=== PATIENT | female | born 1990 | race African-American/Black ===

== ENCOUNTER 2016-09-26 12:57 | Emergency (ER) | payer MEDICAID, OTHER ==
[~2016-09-26] VITALS: Ht 165.1 cm; Wt 86.2 kg
[2016-09-26 14:00] LABS: BASOPHILS % (AUTO) 1.5 % (0.0-2.0); EOSINOPHILS % (AUTO) 1.3 % (0.0-3.0); LYMPHOCYTES % (AUTO) 14.8 % (20.0-45.0); MEAN CORPUSCULAR HGB CONC 33.6 G/DL (32.0-36.0); MEAN CORPUSCULAR VOLUME 86 FL (80-99); MONOCYTES % (AUTO) 7.2 % (1.0-10.0); NEUTROPHILS % (AUTO) 75.2 % (45.0-75.0); PLATELET COUNT 272 K/UL (150-450); RED BLOOD COUNT 4.33 M/UL (4.20-5.40); RED CELL DISTRIBUTION WIDTH 12.4 % (11.6-14.8); WHITE BLOOD COUNT 11.7 K/UL (4.8-10.8)
[2016-09-26 14:07] LABS: KETONES,URINE NEGATIVE (NEGATIVE); LEUKOCYTE ESTERASE ,URINE 1+ (NEGATIVE); NITRITE,URINE NEGATIVE (NEGATIVE); PH,URINE 7 (4.5-8.0); PROTEIN,URINE NEGATIVE (NEGATIVE); UROBILINOGEN,URINE NORMAL MG/DL (0.0-1.0)
[2016-09-26 14:16] LABS: APPEARANCE,URINE SLIGHTLY CLOUDY; BACTERIA,URINE FEW /HPF; RBC,URINE 0-2 /HPF (0 - 2); SQUAMOUS EPITHELIAL CELL,UR MODERATE /LPF (NONE/OCC)
--- NOTE | 2016-09-26 17:23 | Emergency Room Report ---
History of Present Illness General Chief Complaint: Complications Source: Patient Present Illness HPI 26-year-old female presents to emergency Department complaining of lower abdominal cramping in addition to new onset vaginal bleeding at approximately 2.5 months . Patient denies trauma falls denies constipation diarrhea patient reports nausea that has been experienced x2 months. Patient denies vomiting patient denies fevers or chills patient denies ill contacts or recent travel. Patient reports intermittent spotting bright red blood. Denies dysuria , hematuria or urgency. Denies vaginal discharge other than blood denies history of STDs. Patient is . Pt. is not currently taking vitamins. Denies CP, Palpitations, LOC, AMS, dizziness, Changes in Vision, Sensation, paresthesias, or a sudden severe headache. Allergies: Coded Allergies: No Known Allergies (Unverified , 10/13/15) Patient History Past Medical History: see triage record Past Surgical History: none Pertinent Family History: none Last Menstrual Period: 07/16/2017 Now: Yes : 1 Para: 0 Immunizations: UTD Reviewed Nursing Documentation: PMH: Agreed, PSxH: Agreed Nursing Documentation-PMH Past Medical History: No Stated History Hx Cardiac Problems: No - septal defect Review of Systems All Other Systems: negative except mentioned in HPI Physical Exam Vital Signs Date Time Temp Pulse Resp B/P Pulse Ox O2 Delivery O2 Flow Rate FiO2 09/26/16 13:14 99.3 106 18 138/90 95 Sp02 EP Interpretation: reviewed, abnormal - tachycardic at 106 bpm General Appearance: no apparent distress, alert, GCS 15, non-toxic Head: normocephalic, atraumatic Eyes: bilateral eye PERRL, bilateral eye normal inspection ENT: hearing grossly normal, normal pharynx, no angioedema, normal voice Neck: full range of motion, supple/symm/no masses Respiratory: chest non-tender, lungs clear, normal breath sounds, speaking full sentences Cardiovascular #1: regular rate, rhythm, no edema Gastrointestinal: normal bowel sounds, non tender, soft, no guarding, no rebound Rectal: deferred Genitourinary: normal inspection, no CVA tenderness, adnexa normal, other - scant dark blood in vaginal vault, os is closed, no CMT, no lesions noted. Musculoskeletal: back normal, gait/station normal, normal range of motion, non- tender, no calf tenderness Neurologic: alert, oriented x3, responsive, motor strength/tone normal, sensory intact, speech normal Psychiatric: judgement/insight normal, memory normal, mood/affect normal, no suicidal/homicidal ideation Skin: normal color, no rash, warm/dry, well hydrated Lymphatic: no adenopathy Medical Decision Making PA Attestation Dr. Juarez is my supervising Physician whom patient management has been discussed with. Diagnostic Impression: Primary Impression: Vaginal bleeding in Qualified Codes: O46.91 - Antepartum hemorrhage, unspecified, first trimester ER Course 26-year-old female presents to emergency Department complaining of lower abdominal cramping in addition to new onset vaginal bleeding at approximately 2.5 months . Patient denies trauma falls denies constipation diarrhea patient reports nausea that has been experienced x2 months. Patient denies vomiting patient denies fevers or chills patient denies ill contacts or recent travel. Patient reports intermittent spotting bright red blood. Denies dysuria , hematuria or urgency. Denies vaginal discharge other than blood denies history of STDs. Patient is Ddx considered but are not limited to: Fibroid, ectopic , Fibroid, Spontaneous , Vital signs: are WNL, pt. is afebrile H&PE are most consistent with: spotting during early , threatened . ORDERS: -Urine HCG- Positive -Serum Hcg Quant: [id number] -CBC: no leukocytosis, no anemia -Pelvic US complete- normal intrauterine estimated at 12 weeks gestation. HR is 157 BPM per official radiology report. ED INTERVENTIONS: None at this time. DISCHARGE: At this time pt. is stable for d/c to home. Will provide printed patient care instructions, and any necessary prescriptions. Care plan and follow up instructions have been discussed with the patient prior to discharge. Last Vital Signs Date Time Temp Pulse Resp B/P Pulse Ox O2 Delivery O2 Flow Rate FiO2 09/26/16 13:14 99.3 106 18 138/90 95 Disposition: HOME, SELF-CARE Condition: Stable Scripts Pnv Cmb#21/Iron/Folic Acid ( COMPLETE CAPLET) 1 Each Tablet 1 EACH PO DAILY for 30 Days, #30 TAB Prov: Gifty Crain 09/26/16 Referrals: NON PHYSICIAN (PCP) Patient Instructions: Vaginal Bleeding During , First Trimester, Easy- to-Read Additional Instructions: Take medications as directed. Follow up with OBGYN in 3-5 days Return sooner to ED if new symptoms occur, or current symptoms become worse. - Please note that this Emergency Department Report was dictated using [employer] oracle technology software, occasionally this can lead to erroneous entry secondary to interpretation by the dictation equipment. Gifty Crain Sep 26, 2016 17:23
[2016-09-26] MEDS ORDERED: PRENATAL COMPL1 EAC1 PO (17:50)
[2016-09-26 18:09] VITALS: BP 138/90
--- NOTE | 2016-09-27 09:37 | Diagnostic Imaging Report ---
Indication:. Pelvic pain Technique: Grayscale and duplex Doppler imaging of the pelvis performed utilizing a transabdominal scan and endovaginal scan. Comparison: None Findings: Single living intrauterine demonstrated. Gestational age is 12 weeks based on sonographic criteria. anatomy is not assessed. Amniotic fluid appears appropriate. The study was not a limited fashion. heart tones are demonstrated. Size criteria for the fetus are as follows: [place]-rump length 11 weeks 2 days. Biparietal diameter 12 weeks 3 days. Head circumference 12 weeks one day. Abdominal circumference not registerable. Femur length not registerable. Impression: Single living intrauterine 12 weeks gestational age. anatomy not assessed at this stage. No acute abnormalities identified. Note: A negative ultrasound evaluation does not insure well-being or positive outcome for the . monitoring including a nonstress test may be needed and clinical evaluation by [facility] is highly recommended.
== END 2016-09-26 18:10 | disposition home or self-care (01) ==
LOC: EMR 13:43
DX: O46.91 Antepartum hemorrhage, unspecified, first trimester (principal); Z3A.00 Weeks of gestation of pregnancy not specified
CPT/HCPCS: 36415; 76801; 76830; 81003; 81025; 84702; 85025; 99283